=== PATIENT | male | born 1965 | race Caucasian/White ===

== ENCOUNTER → 2019-07-24 13:26 | Outpatient (CLI) | payer OTHER, SELFPAY ==
--- NOTE | 2019-07-23 | COLBX_PTH ---
PATIENT: LAN CURIEL [facility] U#:[id number] AGE/SX: 59/M ROOM: RE07/24/[address]: Dr. Cyril Holguin MD : 1965 BED: DIS: SPEC #: [id number] RECD: 07/24/19 12:13 STATUS: FABIAN RECarroll #: [id number] LATASHA: 07/23/19 00:[address]: Cyril Holguin DEPT: SURGICAL PATHOLOGY RECD BY: Fercho Marie ENTERED: 07/24/19 13:34 SP TYPE: COLON BX OT DR: Dr. Ignacio Agudelo DO Tissues: A - Ascending colon B - Sigmoid colon biopsy Procedures: Surgery Specimen Level IV HEADER OPERATION: Colonoscopy PRE-OP DIAGNOSIS: Z12.11 TISSUE SUBMITTED: A - Ascending colon polyps, B - Sigmoid colon polyp MICROSCOPIC DIAGNOSIS A. Ascending colon polyps, biopsy: Fragments of tubular adenoma. Fragments of hyperplastic polyp. B. Sigmoid colon polyp, biopsy: Hyperplastic polyp. KEITH:zora 07/25/19 MICROSCOPIC DESCRIPTION Slides are reviewed. GROSS DESCRIPTION A - Received in fixative is one container labeled with the patient's name and designated ascending colon polyps. The specimen consists of multiple fragments of erazo-pink polyp that in aggregate measure 1.5 x 0.5 x 0.2 cm. The specimen is totally submitted in one cassette. B - Received in fixative is one container labeled with the patient's name and designated sigmoid colon polyp. The specimen consists of a piece of erazo-pink polyp measuring 0.6 x 0.5 x 0.3 cm. The specimen is totally submitted in one cassette. / KEITH:zora 07/24/19 TC:1 CPT: 86809 x2
== END ==
PROVIDERS: Family Provider Student in an Organized Health Care Education/Training Program; PCP Student in an Organized Health Care Education/Training Program; Referring Provider Internal Medicine Gastroenterology; Visit Provider Internal Medicine Gastroenterology
DX: Z12.11 Encounter for screening for malignant neoplasm of colon (principal); D12.2 Benign neoplasm of ascending colon; K63.5 Polyp of colon
CPT/HCPCS: 88305

== ENCOUNTER → 2022-04-12 | Outpatient (CLI) | payer OTHER, SELFPAY ==
--- NOTE | 2022-04-12 15:51 | CT_ITS ---
STUDY: CT RIGHT LOWER EXTREMITY WITHOUT CONTRAST REASON FOR EXAM: Right knee varus deformity, surgical planning. TECHNIQUE: Transaxial CT imaging of the lower extremity was performed. Coronal and sagittal images were reformatted. Individualized dose optimization techniques were used for this CT. COMPARISON: None. FINDINGS: Knee: There is joint space narrowing of the medial femorotibial compartment (coronal reconstruction 29). There is preservation of joint space of the lateral femorotibial compartment. There is joint space narrowing of the medial aspect of the patellofemoral compartment (axial image 221). There is a small joint effusion. 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 There is preservation of joint space of the right hip. Ankle:. Normal tibiotalar, posterior subtalar and talonavicular articulations. CT/Extremity Lower without Contra IMPRESSION: Right knee osteoarthritis. Electronically Signed: Jairo Thurman MD at 15:04 EDT ,
== END | disposition home or self-care (01) ==
LOC: CT 15:50
PROVIDERS: PCP Student in an Organized Health Care Education/Training Program; Referring Provider Specialist; Visit Provider Specialist
DX: M21.161 Varus deformity, not elsewhere classified, right knee (principal)
CPT/HCPCS: 73700